=== PATIENT | male | born 1950 | race Caucasian/White ===

== ENCOUNTER 2024-08-06 09:36 | Emergency (ER) | payer MEDICARE ==
[~2024-08-06] VITALS: Ht 188 cm; Wt 84.1 kg
--- NOTE | 2024-08-06 10:27 | Physician Documentation ---
History of Present Illness ~ Chief Complaint: Back Pain Stated Complaint: BACK/ABD PAIN/INJURY [id number] AGO Time Seen by MD: 09:48 OK to notify your PCP?: Yes Source: patient Mode of Arrival: POV Exam Limitations: no limitations HPI This is a 73-year-old male who comes in complaining of pain in his lower back. The patient states that this pain began about three weeks ago when he was loading up a mxlu-as-asox into a trailer and twisting his back while "wrenching a comealong". He says the pain stays mostly in the mid back but does radiate out words. He denies pain that radiates down the legs. He denies saddle paresthesias with a lots of bowel control. He states he has been having increa sing urinary frequency but believes he has a urinary tract infection as his urine has been very cloudy and the odor and has been strong and he states he is prone to urinary tract infections. Medication Reconciliation Allergies: Coded Allergies: levofloxacin (Unverified Allergy, Severe, 08/06/24) Physical Exam Physical Exam Vital Signs: Temperature: 97.6, Source: Temporal, Heart Rate: 117, Respiratory Rate: 18, BP: 137/91, Pulse Oximetry: 98, Weight: 84.090 Oxygen Flow Rate: 0 Pulse Oximetry Reflects: adequate oxygenation General Appearance: alert, WD/WN, no apparent distress Back To inspection of the back no obvious trauma or gross deformity. There is midline point tenderness at the area just below the thoracolumbar junction. There was mild tenderness to palpation bilateral paraspinal muscles at this level with a spasm. The patient has decreased range of motion of the trunk with flexion-extension rotation secondary to subjective pain. He is able to get up a nd down off the exam gurney with subjective complaints of pain. Sensory/Motor: 5/5 strength all extrem. Sensory/Motor/Reflexes No straight leg raise bilaterally. Deep tendon reflexes bilateral patellar tendons are deep +and equal. Progress Results/Orders Results/Orders Orders - MELLISA RIZVI Lumbar Spine Limited (08/06/24 10:37) Cult Urine + [place] [address] (08/06/24 10:49) Completed Orders - MELLISA RIZVI Lumbar Spine Limited (08/06/24 10:37) Ketorolac Trometh 15mg/Ml Vial (Toradol (08/06/24 10:20) Hydrocodone/Apap 5/325mg Tab ([place] 5/32 (08/06/24 10:20) Ua W/Microscopic, Cult If Ind (08/06/24 10:20) Ceftriaxone Im Kit W/Lidocaine (Rocephin (08/06/24 10:55) Medications Received in ER Medications (Trade) Dose Ordered Sig/Bayron Route PRN Reason Start Time Stop Time Status Last Admin Dose Admin (Toradol injection) 15 mg ONCE ONCE IM 08/06/24 10:20 08/06/24 10:21 DC 08/06/24 10:41 15 MG ([place] 5/325mg tablet) 1 tab ONCE ONCE PO 08/06/24 10:20 08/06/24 10:21 DC 08/06/24 10:39 1 TAB (Rocephin 1GM IM kit (w/lidocaine diluent)) 1,000 mg ONCE ONCE IM 08/06/24 10:55 08/06/24 10:56 DC 08/06/24 11:05 1,000 MG Vital Signs 08/06/24 08/06/24 08/06/24 09:42 10:39 10:41 Temp 97.6 Pulse 117 Resp 18 18 18 B/P (MAP) 137/91 Pulse Ox 98 O2 Flow Rate 0 Laboratory Tests Test 08/06/24 10:20 Urine Specimen Description Cln catch midstream Urine Color Green Urine Clarity Cloudy Urine pH 7.5 Urine Specific [place] 1.020 Urine Protein 100 H Urine Glucose (UA) Negative Urine Ketones Negative Urine Occult Blood Trace-intact Urine Nitrite Negative Urine Bilirubin Negative Urine Urobilinogen 0.2 Urine Leukocyte Esterase Large H Urine RBC 3-10 Urine WBC Tntc H Urine WBC Clumps Few Urine Squamous Epithelial Cells Few Urine Transitional Epithelial Cells Few Urine Triple Phosphate Crystals 1+ Urine Bacteria 4+ Urine Mucus None seen Urine Culture Indicated Indicated Volume Urine Centrifuged 10 ml Urine Comment Medical Decision Making Findings Patient's urinalysis shows too numerous to count WBCs and leukocyte esterase. Findings very consistent with a urinary tract infection. I addressed this with Rocephin 1 g intramuscular I had a prescription for Keflex 500 mg 3 times a day for 10 days. Regarding the patient's back pain he received Toradol 15 mg IM and [place] p.o. for his pain. X-rays showed moderate lower lumbar degenerative changes with disc space narrowing, spinal canal stenosis. The patient does not have signs of cauda equina syndrome or focal neuro deficits. The urinary tract infection appears to be independent of his back pain. I did instruct the patient to follow up with the primary care physician to recheck his back pain in the urinary tract infection. Return to the ER for any worsening or concerning symptoms such as fever. Differential Diagnosis Disc herniation of the lumbar spine. Lumbosacral radiculopathy. Degenerative spine disease. Facet arthropathy. Urinary tract infection. Dysuria. Departure Disposition: HOME / SELF CARE / HOMELESS Impression: Primary Impression: Degenerative joint disease (DJD) of lumbar spine Additional Impression: Urinary tract infection Condition: Stable Discharge Instructions: Acute Back Pain, Adult, Urinary Tract Infection, Adult Additional Instructions: Take all medications as directed for your back pain and your urinary tract infection. Drink plenty of water. Follow up with your primary care physician for follow up on both your back pain in your outer infection. Return to the ER for any worsening symptoms such as fever or any concerns. Referrals: NO PRIMARY CARE PROVIDER (PCP) Prescriptions Methocarbamol (Methocarbamol) 750 Mg Tablet 1 TAB PO Q8H for muscle pain/spasm, #20 TAB 0 Refills Prov: MELLISA RIZVI 08/06/24 Hydrocodone Bit/Acetaminophen 5/325 MG ([place] 5/325 MG) 5 Mg/325 Mg Tablet 1 TAB PO Q4H PRN for moderate or severe pain, #20 TAB Prov: MELLISA RIZVI 08/06/24 Cephalexin*Monohydrate* (Keflex*) 500 Mg Capsule 1 CAP PO Q8H for 10 Days, #30 CAP Prov: MELLISA RIZVI 08/06/24 Signature Scribe Signature: No scribe Attestation: The note accurately reflects work and decisions made by me.Mellisa RAMOS 08/06/24 11:31 MELLISA RIZVI August 06, 2024 10:27
[2024-08-06 10:39] LABS: BILIRUBIN,URINE NEGATIVE (Neg); GLUCOSE, URINE NEGATIVE (Neg); KETONES,URINE NEGATIVE (Neg); LEUKOCYTE ESTERASE ,URINE LARGE (Neg); NITRITES, URINE NEGATIVE (Neg); OCCULT BLOOD,URINE TRACE-INTACT (Neg); PH,URINE 7.5 (4.8-8.0); PROTEIN,URINE 100 mg/dl (Neg); UROBILINOGEN,URINE 0.2 E.U/dL (0.2-1.0)
[2024-08-06] MEDS: HYDROcodone/acetaminophen 5mg/325mg tablet PO ONE (10:39)
[2024-08-06 10:40] LABS: CLARITY,URINE CLOUDY (Clear); COLOR,URINE GREEN (Yellow); UA COLLECTION TYPE CLN CATCH MIDSTREAM
[2024-08-06] MEDS: ketorolac trometh 15mg/ml vial 15 MG/ML ML IM ONE (10:41)
[2024-08-06 10:45] LABS: WBC,URINE TNTC /HPF (0-4)
[2024-08-06 10:46] LABS: BACTERIA,URINE 4+ /HPF (Neg); SQUAMOUS EPITHELIAL CELL,UR FEW /LPF (FEW)
[2024-08-06 10:48] LABS: MUCUS STRANDS NONE SEEN /LPF (Neg); TRANSITIONAL EPI CELLS,URINE FEW /HPF; TRIPLE PHOSPHATE CRYST 1+ /HPF (NEGATIVE); WBC CLUMPS,URINE FEW /HPF (NEGATIVE)
--- NOTE | 2024-08-06 11:00 | RADIOLOGY REPORT ---
INDICATION: Back pain COMPARISON: None TECHNIQUE: 3 views of the lumbar spine were obtained. FINDINGS: The lumbar vertebral alignment is normal. Multilevel degenerative changes most severe at L4-L5 through L5-S1 with moderate neural foraminal and spinal canal stenosis No acute fracture, vertebral compression deformity or aggressive osseous lesions. The paravertebral soft tissues are grossly unremarkable. IMPRESSION: No acute fracture or subluxation.
[2024-08-06] MEDS: CefTRIAXone 1000mg IM Kit (w/lidocaine diluent) IM ONE (11:05)
[2024-08-06] MEDS ORDERED: METH-798 PO (11:30)
[2024-08-06] MEDS ORDERED: HYDR-3965 PO (11:30)
[2024-08-06] MEDS ORDERED: CEPH-585 PO (11:30)
[2024-08-06 11:35] VITALS: BP 132/78; PULSE 87; RESP 16; TEMP 97.6; O2SAT 99
== END 2024-08-06 11:35 | disposition home or self-care (01) ==
LOC: ER 09:37
DX: M51.360 Other intervertebral disc degeneration, lumbar region with discogenic back pain only (principal); N39.0 Urinary tract infection, site not specified; Z88.1 Allergy status to other antibiotic agents
CPT/HCPCS: 72100; 81001; 87088; 96372; 99284; J0696; J1885

== ENCOUNTER 2024-08-13 13:58 | Inpatient (IN) | payer MEDICARE ==
[~2024-08-13] VITALS: Ht 188 cm; Wt 91.8 kg
[~2024-08-13 13:58] MED LIST: CEPH-585 PO; HYDR-3965 PO; METH-798 PO
--- NOTE | 2024-08-13 14:57 | Physician Documentation ---
History of Present Illness ~ Chief Complaint: Flank Pain Stated Complaint: SEPSIS Time Seen by MD: 14:27 Primary Medical Doctor: [facility] Mode of Arrival: EMS HPI This 73-year-old male presents via [facility] for left flank pain, pyelonephritis, acute kidney injury, severe sepsis urinary retention and a peritoneal abscess. Menstrual also made note of hydronephrosis of the right kidney, and peritoneal fluid collection In addition it was found that patient has a T10 compression fracture He also has a history of requiring dilation for his urethral strictures. He has been on Keflex for three weeks. Currently reporting foul-smelling urine. Day of Onset: August 13, 2024 Medication Reconciliation Allergies: Coded Allergies: levofloxacin (Unverified Allergy, Severe, 08/06/24) Scheduled Cephalexin*Monohydrate* (Keflex*), 1 CAP PO Q8H Methocarbamol (Methocarbamol), 1 TAB PO Q8H Scheduled PRN Hydrocodone Bit/Acetaminophen 5/325 MG ([place] 5/325 MG), 1 TAB PO Q4H PRN for moderate or severe pain Review of Systems All Other Systems at this time: Reviewed and Negative ROS As stated above in the HPI, otherwise all systems are reviewed and negative. Physical Exam Vital Signs: Temperature: 98.1, Source: Oral, Heart Rate: 115, Respiratory Rate: 19, BP: 135/92, Pulse Oximetry: 96, Weight: 91.820 Oxygen Flow Rate: 0 Physical Exam General: Alert, no apparent distress. Toxic appearing HEENT: PERRL, EOMI, no injection, moist mucous membranes. Genitourinary: Positive CVA tenderness on the right side. Tender to palpation in the pelvic region ,distended Respiratory: Lungs clear, no respiratory distress. Cardiovascular: Regular rate and rhythm, no murmurs. Gastrointestinal: Soft, nontender, nondistended. Bowels sounds present. Neurologic: Oriented x4. Psychiatric: Normal mood and affect. Skin: Normal color, warm and dry. No edema, no ecchymosis. Progress Results/Orders Results/Orders Orders - WILLIAM GOMEZ RESTRIKE HAMMER OPERATOR * Bladder Scan / Post Residual (08/13/24 14:39) General Nursing Order (08/13/24 ) Page Hospitalist (08/13/24 ) [place] (08/13/24 16:58) Completed Orders - WILLIAM GOMEZ RESTRIKE HAMMER OPERATOR Cbc/Diff (08/13/24 14:36) BMP (08/13/24 14:36) Lipase (08/13/24 14:36) CMP (08/13/24 14:36) Morphine 4mg/Ml Inj. (Morphine Inj.) (08/13/24 15:05) Lidocaine 1% W/Epi 1:100,000 (Xylocaine (08/13/24 15:45) Ua W/Microscopic, Cult If Ind (08/13/24 16:24) Ceftriaxone 2gm/D5w 50ml Bag (Rocephin 2 (08/13/24 17:00) Medications Received in ER Medications (Trade) Dose Ordered Sig/Bayron Route PRN Reason Start Time Stop Time Status Last Admin Dose Admin (morphine inj.) 4 mg ONCE ONCE IV 08/13/24 15:05 08/13/24 15:06 DC 08/13/24 15:11 4 MG (morphine inj.) 4 mg ONCE ONCE IV 08/13/24 16:20 08/13/24 16:22 DC 08/13/24 16:32 4 MG Ceftriaxone Sodium/Dextrose 50 ml @ 100 mls/hr DAILY IV 08/13/24 17:00 08/13/24 17:29 DC 08/13/24 17:16 100 MLS/HR Sodium Chloride 1,000 ml @ 100 mls/hr Q10H IV 08/13/24 17:00 08/13/24 17:15 100 MLS/HR Vital Signs 08/13/24 08/13/24 08/13/24 08/13/24 14:00 14:04 14:11 15:11 Temp 98.6 98.1 Pulse 105 115 Resp 22 18 19 18 B/P (MAP) 157/93 135/92 (106) Pulse Ox 95 96 O2 Flow Rate 0 0 08/13/24 08/13/24 16:32 16:34 Temp 98.1 Pulse 112 Resp 15 16 B/P (MAP) 126/88 (101) Pulse Ox 97 O2 Flow Rate 0 Laboratory Tests Test 08/13/24 14:48 08/13/24 16:24 White Blood Count 12.4 H Red Blood Count 3.70 L Hemoglobin 11.0 L Hematocrit 33.8 L Mean Corpuscular Volume 91.3 Mean Corpuscular Hemoglobin 29.7 Mean Corpuscular Hemoglobin Concent 32.5 L Red Cell Distribution Width 15.0 H Platelet Count 437 Mean Platelet Volume 8.2 Neutrophils (%) (Auto) 71.0 Lymphocytes (%) (Auto) 19.4 L Monocytes (%) (Auto) 8.7 Eosinophils (%) (Auto) 0.6 Basophils (%) (Auto) 0.3 Neutrophils # (Auto) 8.8 H Lymphocytes # (Auto) 2.4 Monocytes # (Auto) 1.1 H Eosinophils # (Auto) 0.1 Basophils # (Auto) 0.0 CBC Comment Sodium Level 137 Potassium Level 4.3 Chloride Level 105 Carbon Dioxide Level 22.8 L Anion Gap 9 Blood Urea Nitrogen 49 H Creatinine 1.96 H Estimated GFR/1.73 m2 34 BUN/Creatinine Ratio 25.0 H Glucose Level 101 Calcium Level 9.0 Total Bilirubin 0.2 Aspartate Amino Transf (AST/SGOT) 18 Alanine Aminotransferase (ALT/SGPT) 25 Alkaline Phosphatase 167 H Total Protein 7.5 Albumin 2.0 L Globulin 5.5 H Albumin/Globulin Ratio 0.4 L Lipase 45 Chemistry Comments Urine Specimen Description Theodore cath Urine Color Yellow Urine Clarity Cloudy Urine pH 5.5 Urine Specific [place] 1.015 Urine Protein 30 H Urine Glucose (UA) Negative Urine Ketones Negative Urine Occult Blood Large H Urine Nitrite Negative Urine Bilirubin Negative Urine Urobilinogen 0.2 Urine Leukocyte Esterase Trace H Urine RBC Tntc Urine WBC 5-10 H Urine Squamous Epithelial Cells Few Urine Bacteria 1+ Urine Culture Indicated Indicated Volume Urine Centrifuged 10 ml Urine Comment Medical Decision Making Findings Contacted Dr. Austin or emergent operation on urethral stricture t or suprapubic catheter tod decompress the bladder. Was evaluated by Dr. Austin Difficulty placing the the guidewire initially however eventually he was able to insert the appropriate dilators and eventually obtain a of Theodore catheterization with the positive results. Patient's bladder has been decompressed requesting hospital admission antibiotics and further evaluation Urinary Diff Dx:Considerations: Include: AAA, Aortic dissection, Appendicitis, Appendicitis train, Bowel obstruction, Bladder outlet obstruc., Cholelithiasis, Choleangitis, Cholecystitis, DJD, Epididymitis, Hepatitis, HNP, Impaction, Musculoskeletal pain, Pancreatitis, Postoperative Comp., Prostatitis, Pyelonephritis, Renal failure, Renal infarction, Strain, Urolithiasis, Urinary Obstruction, Urethritis, Urinary retention, UTI, Other Departure Disposition: HOME / SELF CARE / HOMELESS Impression: Primary Impression: Acute pyelonephritis Additional Impression: Urinary retention Referrals: NO PRIMARY CARE PROVIDER (PCP) Signature Scribe Signature: dThe note accurately reflects work and decisions made by me.William Jacobs NP 08/13/24 18:03 Attestation: The note accurately reflects work and decisions made by me.William Jacobs NP 08/13/24 18:03 WILLIAM GOMEZ NP August 13, 2024 14:57
[2024-08-13] MEDS: morphine 4 MG/ML inj SYRINge IV ONE ×2 (15:11→16:32)
[2024-08-13 15:26] LABS: BASOPHILS % (AUTO) 0.3 % (0-1); EOSINOPHILS # (AUTO) 0.1 X10'3 (0-0.9); EOSINOPHILS % (AUTO) 0.6 % (0-6); HEMATOCRIT 33.8 % (42.0-52.0); LYMPHOCYTES # (AUTO) 2.4 X10'3 (1.1-4.8); LYMPHOCYTES % (AUTO) 19.4 % (21-51); MEAN CORPUSCULAR HEMOGLOBIN 29.7 PG (27.0-31.0); MEAN CORPUSCULAR HGB CONC 32.5 g/dL (33.0-36.5); MEAN CORPUSCULAR VOLUME 91.3 FL (78-98); MEAN PLATELET VOLUME 8.2 FL (7.4-10.4); MONOCYTES # (AUTO) 1.1 X10'3 (0-0.9); MONOCYTES % (AUTO) 8.7 % (2-12); NEUTROPHILS # (AUTO) 8.8 X10'3 (1.8-7.7); PLATELET COUNT 437 X10'3 (140-440); WHITE BLOOD COUNT 12.4 X10'3 (4.5-11.0)
[2024-08-13 15:45] LABS: ALANINE AMINOTRANSFERASE 25 U/L (12-78); ALBUMIN/GLOBULIN RATIO 0.4 (1.1-1.5); ALKALINE PHOSPHATASE 167 IU/L (46-116); ANION GAP 9 (8-16); ASPARTATE AMINO TRANSFERASE 18 U/L (10-37); BILIRUBIN,TOTAL 0.2 MG/DL (0.1-1.0); BLOOD UREA NITROGEN 49 MG/DL (7-18); CHLORIDE 105 MMOL/L (99-107); CREATININE 1.96 MG/DL (0.60-1.10); GLUCOSE 101 MG/DL (70-104); LIPASE 45 U/L (16-77); POTASSIUM 4.3 MMOL/L (3.5-5.1); SODIUM 137 MMOL/L (135-145); TOTAL CARBON DIOXIDE 22.8 MMOL/L (24-32); TOTAL PROTEIN 7.5 G/DL (6.4-8.2); eCRCL 38 ML/MIN; eGFR 34 ML/MIN
[2024-08-13] MEDS: LIDOcaine 1% W/epiNEPHrine 1:100,000 20ml vial SQ ONE (16:27)
[2024-08-13 16:54] LABS: BILIRUBIN,URINE NEGATIVE (Neg); CLARITY,URINE CLOUDY (Clear); COLOR,URINE YELLOW (Yellow); GLUCOSE, URINE NEGATIVE (Neg); KETONES,URINE NEGATIVE (Neg); LEUKOCYTE ESTERASE ,URINE TRACE (Neg); NITRITES, URINE NEGATIVE (Neg); OCCULT BLOOD,URINE LARGE (Neg); PH,URINE 5.5 (4.8-8.0); PROTEIN,URINE 30 mg/dl (Neg); UROBILINOGEN,URINE 0.2 E.U/dL (0.2-1.0)
[2024-08-13 16:56] LABS: UA COLLECTION TYPE FOLEY CATH
[2024-08-13] MEDS ORDERED: potassium Cl 20 mEq SR tablet PO PRN ×2 (17:00)
[2024-08-13] MEDS ORDERED: acetaminophen 325mg tablet PO PRN ×2 (17:00)
[2024-08-13] MEDS ORDERED: morphine 2 MG/ML inj. syringe IV PRN (17:00)
[2024-08-13] MEDS ORDERED: potassium Cl 40MEQ/1/2NS 520ml 520 ML IV PRN (17:00)
[2024-08-13] MEDS ORDERED: magnesium Cl slow-release 64mg tablet PO PRN (17:00)
[2024-08-13] MEDS ORDERED: HYDROcodone/acetaminophen 5mg/325mg tablet PO PRN (17:00)
[2024-08-13] MEDS ORDERED: magnesium sulf-water 4G/100mL 100 ML IV PRN (17:00)
[2024-08-13] MEDS ORDERED: magnesium sulf-water 2g/50mL 50 ML IV PRN (17:00)
[2024-08-13] MEDS ORDERED: ondansetron/PF 4mg/2ml inj IV PRN (17:00)
[2024-08-13 17:12] LABS: BACTERIA,URINE 1+ /HPF (Neg); RBC,URINE TNTC /HPF (0-2); SQUAMOUS EPITHELIAL CELL,UR FEW /LPF (FEW)
[2024-08-13] MEDS: normal saline 1000ml 1,000 ML IV SCH (17:15)
[2024-08-13] MEDS: CefTRIAXone 2gm/D5W 50ml BAG 50 ML IV SCH (17:16)
--- NOTE | 2024-08-13 18:03 | HISTORY AND PHYSICAL-Residence ---
History & Physical Providers to CC Resident Creating Document: IKE JULES DESTINY ~ History of Present Illness Primary Medical Doctor: [facility] Reason for Admit\Complaint: PAIN ABDOMEN, RIGHT LOIN PAIN History of Present Illness 73-year-old male with past medical history of hypertension, hyperlipidemia transferred from [facility], [place] with chief complaints of right flank pain with UTI, sepsis, bilateral hydroureteronephrosis. Perineal abscess, T10-T11 with a little compression fracture, pin hole urethra/ureteral strictures requiring dilatation, bladder abnormalities. Endorses backache on the right side for the past 2-1/2 half week and he could not able to check with the daughter and went to [place]. Endorses pain and burning sensation while passing the micturition for two and of week. Complaining of decreased urine output and hematuria. He also endorses low blood pressure of 90 x 60 at home for the past two and half week. Endorses lightheadedness and shakes for the past one week. Complaining of dryness of lips and oral cavity. He has been on Keflex for the past three weeks for urinary tract infection and reporting foul-smelling urine. He reported no abdominal pain, abdominal distention, fever, dizziness. Patient was here in the ER for the lower back pain on 08/06/2024 and treated lumbosacral radiculopathy. Discussed code status with the patient the patient wants to be full code Allergies: Coded Allergies: levofloxacin (Unverified Allergy, Severe, 08/06/24) Home Medications Home Medications Active Methocarbamol 750 Mg Tablet 1 Tab PO Q8H Barnhart 5/325 MG (Acetaminophen/Hydrocodone Bitart) 5 Mg/325 Mg Tablet 1 Tab PO Q4H PRN Keflex* (Cephalexin HCl) 500 Mg Capsule 1 Cap PO Q8H 10 Days Past Medical History Past Medical History Hypertension Hyperlipidemia UTI three weeks back Pinhole urethra Past Surgical History Surgical History Comment TURP in the 2009 Partial knee replacement 2006 Past Social History Smoking: Non-Smoker Alcohol Use: Alcoholic Drug Use: None ROS All Other Systems: Reviewed and Negative ROS Reviewed in full and negative except positive pertinent in HPI Exam Vitals: Vital Signs Date Time Temp Pulse Resp B/P (MAP) Pulse Ox O2 Delivery O2 Flow Rate FiO2 08/13/24 17:31 98.1 107 15 126/88 (101) 95 0 General: General: Alert, awake, oriented to time, place , person . Not in acute distress comfortably lying in the bed HEENT: PERRL, EOMI, no injection, Dry mucous membranes. Gastrointestinal :Soft, nontender, nondistended. Bowels sounds present. Positive CVA tenderness on the right side. Tender to palpation in the pelvic region ,distended Respiratory: Lungs clear, no respiratory distress. No crepitations and wheeze Cardiovascular: Regular rate and rhythm, no murmurs/gallops/rubs. Neurologic: Oriented x4. Psychiatric: Normal mood and affect. Skin: Normal color, warm and dry. No edema, no ecchymosis. Extremities: No clubbing no cyanosis, no edema Diagnostic Data Last Recorded Lab Results: 08/13/24 1448 08/13/24 1448 Advance Care Planning Advanced Care planning: Add on additional 30 min Additional Plan UTI Sepsis Cystitis with bilateral severe hydroureteronephrosis with ureteral stricture Tachycardia is noted. White blood counts , serum creatinine are elevated. Urinalysis positive for UTI Blood culture and urine culture, procalcitonin, CRP, lactic acid is is ordered Received ceftriaxone dose and morphine We are continuing ceftriaxone 2 g IV On IV normal saline 100 mL/hour Patient may benefit from Urologist consultation and surgeons consultation. We will be in NPO CT and abdomen and pelvis with IV contrast at [facility] is showing bilateral hydronephrosis. Atrophic left kidney. Severe hydroureter. Severely distended bladder with diffusely thickened wall. No visible urinary tract calcifications. Large fluid collection involving the perineum at the base of the penis. No associated soft tissue gas or inflammatory change. Perineal abscess could cause appearance. Compression fracture versus diskitis involving the T10-11 vertebral bodies in the right done on 08/13/2024. Pain is treated with Barnhart 10 q.6 H p.r.n. and morphine GARRET Likely secondary to prerenal, vasomotor nephropathy, UTI with sepsis with dehydration Creatinine is 1.96 and BUN to creatinine ratio is 25 On IV normal saline at the rate of 100 mL/hour and ceftriaxone Continue to monitor serum CMP Perineal abscess Compression fracture involving T10 and T11 vertebral bodies in the right side Patient needs the orthopedic consultation and IR/ surgeon consultation Currently on ceftriaxone, IV normal saline at the rate of 100 mL/hour. Hypertension Blood pressure is okay On hydralazine q.6 H 10 mg IV Hyperlipidemia Ordered lipid panel and we will follow up with the results Severe Protein malnutrition Serum albumin two Patient is currently in NPO Elevated ALP ALP is 167 Could be acute phase reactant. We will follow up with the LFTs Code status: Full Diet: NPO after midnight DVT prophylaxis: Heparin subQ PT: Ordered Prognosis: Guarded Disposition: Patient needs ID consultation, Urology, surgeon consultation Ike Jules Im Resident. Date of Service: August 13, 2024 Billing Provider: JUNO HILL MD Common Visit Codes: 95234-AVVYPIN INP/OBS CARE (HIGH) Secondary Visit Codes: 12656-[id number] CARE PLAN 30 MINUTES IKE JULES, RES August 13, 2024 18:03 JUNO HILL MD August 13, 2024 19:02
[2024-08-13] MEDS ORDERED: hydrALAZINE 20mg/ml inj. IV PRN (18:20)
[2024-08-13 19:23] LABS: HEMOGLOBIN A1C 6.2 % (4.5-6.2)
[2024-08-13 19:58] LABS: C-REACTIVE PROTEIN 13.77 MG/DL (0.0-0.5); CHOL/HDL RATIO 2.9 (0.00-4.99); CHOLESTEROL 135 MG/DL (0-200); HDL CHOLESTEROL 46 MG/DL (35-60); LDL CHOLESTEROL 69 MG/DL (50-100); TRIGLYCERIDES 90 MG/DL (20-135)
[2024-08-13] MEDS: heparin, porcine 5000 units/ml vial SQ SCH (20:37)
[2024-08-13] MEDS ORDERED: CELE-193 PO (23:03)
[2024-08-13] MEDS ORDERED: HYDR-3965 PO (23:03)
[2024-08-13] MEDS ORDERED: RIVA10TA PO (23:03)
[2024-08-13] MEDS ORDERED: LISI20TA28 PO (23:03)
[2024-08-13 23:05] VITALS: BP 132/86; PULSE 103; RESP 19; TEMP 97.9; O2SAT 95
--- NOTE | 2024-08-14 01:34 | CONSULTATION ---
DATE OF CONSULTATION: 08/13/2024 DICTATING PHYSICIAN: Parish Austin MD HISTORY OF PRESENT ILLNESS: A 73-year-old male who was admitted and transferred from [facility] in [place] to [facility] with left flank pain and apparent pyelonephritis with elevated creatinine and sepsis from possible bladder distention. He was found to have a profound meatal stenosis and passing purulent color ____ with a tiny stream. Nursing staff was unable to catheterize him and he was transferred for my care. On further questioning, he has a remote history of urethral stricture dilated more than 15 years ago. Bladder scan suggests a residual of more than 1200 mL. PAST MEDICAL HISTORY: Urethral strictures and UTI. PAST SURGICAL HISTORY: None. ALLERGIES: LEVAQUIN. MEDICATIONS: Keflex and methocarbamol. SOCIAL HISTORY: Noncontributory. REVIEW OF SYSTEMS: A 10-point review of systems is negative except for HPI. PHYSICAL EXAMINATION: VITAL SIGNS: Blood pressure is 135/92, respirations 20, heart rate 115, temperature 98.1. GENERAL: He is in minimal distress. GENITOURINARY: Shows a circumcised penis with a pinpoint meatus, but it is difficult to see the meatal orifice even. The patient has a palpable bladder up the umbilicus. LABORATORY DATA: White count 12,400, hematocrit is 34%. BUN and creatinine are 49 and 1.96. Urine shows too numerous to count red cells per high-powered field. IMAGING: Radiographs are pending. PROCEDURE NOTE: Standard prep and drape of the genitals was performed. With difficulty, a wire was advanced into a tiny orifice of the meatus and advanced and coiled into the kidney. This was followed by urethral dilation from 6-Serbian up to 18-Serbian, which the patient tolerated moderately well. The guidewire was left indwelling and used to advance a 14-Serbian Theodore catheter with 10 mL in the balloon and drainage of 1000 mL of cloudy-colored urine. ASSESSMENT: Urinary retention secondary to severe meatal stenosis. Also suspect the patient has more stricture disease proximally as well based on dilation today. PLAN: Theodore catheter for now. Discharge home with Theodore catheter in place. He will follow up with me in 1-2 weeks for voiding trial. Parish Austin MD TID: [id number] RECEIPT: [id number] [place]ARYN/[place]
[2024-08-14 04:36] LABS: BASOPHILS # (AUTO) 0.1 X10'3 (0-0.2); BASOPHILS % (AUTO) 0.7 % (0-1); EOSINOPHILS # (AUTO) 0.2 X10'3 (0-0.9); EOSINOPHILS % (AUTO) 1.3 % (0-6); HEMATOCRIT 31.8 % (42.0-52.0); HEMOGLOBIN 10.2 g/dl (14.0-17.9); LYMPHOCYTES # (AUTO) 2.1 X10'3 (1.1-4.8); LYMPHOCYTES % (AUTO) 17.8 % (21-51); MEAN CORPUSCULAR HEMOGLOBIN 29.9 PG (27.0-31.0); MEAN CORPUSCULAR HGB CONC 32.2 g/dL (33.0-36.5); MEAN CORPUSCULAR VOLUME 92.7 FL (78-98); MEAN PLATELET VOLUME 8.2 FL (7.4-10.4); MONOCYTES # (AUTO) 0.9 X10'3 (0-0.9); MONOCYTES % (AUTO) 7.8 % (2-12); NEUTROPHILS # (AUTO) 8.6 X10'3 (1.8-7.7); NEUTROPHILS % (AUTO) 72.4 % (42-75); PLATELET COUNT 397 X10'3 (140-440); RED BLOOD COUNT 3.43 X10'6 (4.70-6.10); RED CELL DISTRIBUTION WIDTH 15.4 % (11.5-14.5); WHITE BLOOD COUNT 11.9 X10'3 (4.5-11.0)
[2024-08-14 05:01] LABS: ALBUMIN 1.7 G/DL (3.4-5.0); ANION GAP 12 (8-16); BLOOD UREA NITROGEN 43 MG/DL (7-18); BUN/CREATININE RATIO 23.8 (10.0-20.0); CHLORIDE 107 MMOL/L (99-107); CREATININE 1.81 MG/DL (0.60-1.10); GLUCOSE 83 MG/DL (70-104); POTASSIUM 4.3 MMOL/L (3.5-5.1); SODIUM 139 MMOL/L (135-145); TOTAL CARBON DIOXIDE 19.9 MMOL/L (24-32); eCRCL 42 ML/MIN; eGFR 37 ML/MIN
[2024-08-14 06:00] VITALS: BP 110/84; PULSE 95; RESP 19; TEMP 97.8; O2SAT 96
[2024-08-14] MEDS: CefTRIAXone 2gm/D5W 50ml BAG 50 ML IV SCH (07:42)
[2024-08-14] MEDS: morphine 2 MG/ML inj. syringe IV PRN (08:07)
[2024-08-14 10:00] VITALS: BP 119/83; PULSE 102; RESP 20; TEMP 98.2; O2SAT 94
--- NOTE | 2024-08-14 14:22 | RADIOLOGY REPORT ---
PROCEDURE: MR MRI LUMBAR SPINE INDICATION: trauma with intabdominal collection 73-year-old male with back pain. Exam Date: 08/14/2024 12:07 PM COMPARISON: Lumbar spine radiographs dated 08/06/2024. TECHNIQUE: MRI lumbar spine without intravenous contrast. FINDINGS: No vertebral body fractures are identified about the lumbar spine. There is bilateral L5 spondylolysi s with grade 1 anterolisthesis L4 on L5 measuring 8 mm AP. The conus terminates at L1. L1-L2: There is a mild circumferential broad disc bulge. There is bilateral facet and ligamentum flav um hypertrophy. No significant spinal canal stenosis or neural foraminal stenosis bilaterally. L2-L3: There is a mild circumferential broad disc bulge. There is bilateral facet and ligamentum flav um hypertrophy. No significant spinal canal stenosis or neural foraminal stenosis bilaterally. L3-L4: There is a mild circumferential broad disc bulge. There is bilateral facet hypertrophy. No sig nificant spinal canal stenosis or neural foraminal stenosis bilaterally. L4-L5: There is 8 mm anterolisthesis L4 on L5 with bilateral L5 spondylolysis. There is disc desiccat ion with loss of disc height. Possible vacuum phenomenon in the disc. There are Modic type 2 changes in the adjacent endplates. There is a circumferential broad disc bulge with endplate hypertrophy. No significant spinal canal stenosis. There is moderate to severe bilateral neural foraminal stenosis. L5-S1: There is disc desiccation with mild loss of disc height. Probable vacuum phenomenon in the di sc. There is a circumferential broad disc bulge. There is mild bilateral facet hypertrophy. No signif icant spinal canal stenosis. There is mild bilateral neural foraminal stenosis. Miscellaneous: There is bilateral renal atrophy, greater on the left, although the kidneys are not fu lly imaged here. IMPRESSION: 1. No vertebral body fracture of the lumbar spine. 2. 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 3. Advanced lumbar degenerative disc disease and facet arthropathy with significant neural foraminal stenosis bilaterally at L4-L5. These findings May correspond to lower extremity radicular symptoms i n the L4 nerve root distributions. 4. No high-grade spinal canal stenosis at any level in the lumbar spine. 5. Bilateral renal atrophy, not fully imaged here.
[2024-08-14 14:47] VITALS: RESP 18; O2SAT 94
--- NOTE | 2024-08-14 16:21 | PROGRESS NOTE- Residence ---
Progress Note - Resident Providers to CC Resident Creating Document: NANABEL JULES RES ~ Antibiotic Timeout Antibiotic Ordered?: Yes Subjective Patient is seen and examined on bedside. Endorses complaining of the right loin pain, near the costovertebral angle. He is not feeling well for the past two and half to three weeks and history of the fall to end of week back and micturition difficulties for the past two and half week. He is living with his . He is also complaining of the lower backache. Objective Vital Signs Date Time Temp Pulse Resp B/P (MAP) Pulse Ox O2 Delivery O2 Flow Rate FiO2 08/14/24 14:52 18 08/14/24 14:47 94 Room Air 08/14/24 10:00 98.2 102 119/83 (95) 08/14/24 00:05 0 21 Result Diagram: 08/14/24 0300 08/14/24 0414 General: Alert, awake, oriented to time, place , person . Not in acute distress comfortably lying in the bed HEENT: PERRL, EOMI, no injection, Dry mucous membranes. Gastrointestinal :Soft, nontender, nondistended. Bowels sounds present. Positive CVA tenderness on the right side. Tender to palpation in the pelvic region Respiratory: Lungs clear, no respiratory distress. No crepitations and wheeze Cardiovascular: Regular rate and rhythm, no murmurs/gallops/rubs. Neurologic: Oriented x4. Psychiatric: Normal mood and affect. Skin: Normal color, warm and dry. No edema, no ecchymosis. Extremities: No clubbing no cyanosis, no edema. No point tenderness in the LS spine Advance Care Planning Advanced Care plannin - 30 Minutes Assessment Assessment 73-year-old male admitted with acute urinary retention, urethral stricture, bilateral severe hydroureteronephrosis, UTI, cystitis, sepsis, GARRET. Consulted urologist and surgeon and we will appreciate their recommendations. Plan Plan UTI Sepsis Cystitis with bilateral severe hydroureteronephrosis with urethral stricture Urinary retention 2/2 severe urethral meatal stenosis Tachycardia is noted. White blood counts , serum creatinine are elevated. Urinalysis positive for UTI Blood culture and urine culture, procalcitonin, CRP, lactic acid is is ordered Received ceftriaxone dose and morphine We are continuing ceftriaxone 2 g IV On IV normal saline 100 mL/hour Patient may benefit from Urologist consultation and surgeons consultation. We will be in NPO CT and abdomen and pelvis with IV contrast at [facility] is showing bilateral hydronephrosis. Atrophic left kidney. Severe hydroureter. Severely distended bladder with diffusely thickened wall. No visible urinary tract calcifications. Large fluid collection involving the perineum at the base of the penis. No associated soft tissue gas or inflammatory change. Perineal abscess could cause appearance. Compression fracture versus diskitis involving the T10-11 vertebral bodies in the right done on 08/13/2024. Pain is treated with [place] 10 q.6 H p.r.n. and morphine 08/14/2024: - patient is symptomatically better and vitals are stable, labs WBC, serum creatinine is improved with high dose of IV normal saline and and ceftriaxone. consulted urologist and surgeon in view of urethral stricture and bilateral hydroureteronephrosis and possible perineal abscess. Patient received Theodore's catheterization , procedure done by by Dr. Austin and recommended uses a the patient with Theodore in place and follow up with with him in 1-2 weeks for voiding trial. We will appreciate the recommendations from Dr. Abraham regarding intra-abdominal collection perineum and perianal fluid collection. We will continue ceftriaxone and IV fluids. GARRET Likely secondary to prerenal, vasomotor nephropathy, UTI with sepsis with dehydration Creatinine is 1.96 and BUN to creatinine ratio is 25 On IV normal saline at the rate of 100 mL/hour and ceftriaxone Continue to monitor serum CMP 08/14/2024 - serum creatinine is trended down to 1.81 from 1.96. Patient is on Theodore's catheterization for urethral meatus and acute urinary retention. Perineal abscess Compression fracture involving T10 and T11 vertebral bodies in the right side Patient may need the surgeon & neurosurgery consultation Currently on ceftriaxone, IV normal saline at the rate of 100 mL/hour. Hypertension Blood pressure is in 120s On hydralazine q.6 H 10 mg IV Hyperlipidemia LDL is 69 Severe Protein malnutrition Serum albumin two Patient is currently in NPO Elevated ALP ALP is 167 Code status: Full Diet: Regular diet DVT prophylaxis: Heparin subQ PT: Ordered Prognosis: Guarded Annabel Jules Im Resident. Date of Service: August 14, 2024 Billing Provider: JUNO HILL MD Common Visit Codes: [id number] INP/OBS CARE(HIGH) ANNABEL JULES RES August 14, 2024 16:21 JUNO HILL MD August 14, 2024 19:13
[2024-08-14] MEDS: HYDROcodone/acetaminophen 10/325mg tab PO PRN (17:45)
[2024-08-14 18:00] VITALS: BP 150/89; PULSE 101; RESP 20; TEMP 98.1; O2SAT 97
--- NOTE | 2024-08-14 19:47 | PROGRESS NOTE ---
Progress Note ID Providers to CC ~ Progress Note Progress Note: pt seen by urology-call if needed SHAVON WHITTINGTON MD August 14, 2024 19:47
[2024-08-14 20:00] VITALS: RESP 13; O2SAT 97
--- NOTE | 2024-08-14 20:20 | PROGRESS NOTE ---
DATE: 08/14/2024 DICTATING PHYSICIAN: Parish Austin MD SUBJECTIVE: 24-hour events. I was called the emergency room yesterday with the patient having severe meatal stenosis. He underwent dilation of his meatal stenosis and Theodore catheter placement draining over 2 liters of urine. His CT scan, which was performed prior to transfer to this institution at [facility], was reviewed by me and shows bilateral hydronephrosis with a markedly distended bladder and severe left renal atrophy. Creatinine decreases from 1.96 down to 1.81. White count decreases from 12.4 down to 11.9. ASSESSMENT: Obstructive uropathy secondary to severe meatal stenosis, status post dilation and Theodore catheter placement. The patient has permanently damaged left kidney with atrophy. He is also at high risk for areflexic neurogenic bladder from chronic distention. PLAN: Okay to discharge home with Theodore catheter in place when clinically stable. He will follow up in the office to see me in 1-2 weeks. He will likely need to either be taught intermittent self-catheterization or chronic indwelling Theodore. Intermittent self-catheterization will be problematic in someone with severe stricture disease like him, however. Parish Austin MD TID: [id number] RECEIPT: [id number] LA/BRITANY
[2024-08-14 22:00] VITALS: BP 120/76; PULSE 97; RESP 13; TEMP 98.3; O2SAT 95
[2024-08-15 04:14] LABS: BASOPHILS # (AUTO) 0.1 X10'3 (0-0.2); BASOPHILS % (AUTO) 0.5 % (0-1); EOSINOPHILS # (AUTO) 0.2 X10'3 (0-0.9); EOSINOPHILS % (AUTO) 1.9 % (0-6); HEMATOCRIT 28.7 % (42.0-52.0); HEMOGLOBIN 9.5 g/dl (14.0-17.9); LYMPHOCYTES # (AUTO) 2.1 X10'3 (1.1-4.8); MEAN CORPUSCULAR HEMOGLOBIN 30.2 PG (27.0-31.0); MEAN CORPUSCULAR VOLUME 91.4 FL (78-98); MEAN PLATELET VOLUME 7.9 FL (7.4-10.4); MONOCYTES # (AUTO) 0.8 X10'3 (0-0.9); MONOCYTES % (AUTO) 7.7 % (2-12); NEUTROPHILS # (AUTO) 7.3 X10'3 (1.8-7.7); NEUTROPHILS % (AUTO) 69.9 % (42-75); PLATELET COUNT 343 X10'3 (140-440); RED BLOOD COUNT 3.14 X10'6 (4.70-6.10); RED CELL DISTRIBUTION WIDTH 15.4 % (11.5-14.5); WHITE BLOOD COUNT 10.4 X10'3 (4.5-11.0)
[2024-08-15 04:31] LABS: ALBUMIN 1.6 G/DL (3.4-5.0); ANION GAP 12 (8-16); BLOOD UREA NITROGEN 35 MG/DL (7-18); BUN/CREATININE RATIO 20.3 (10.0-20.0); CALCIUM 8.7 MG/DL (8.5-10.1); CHLORIDE 108 MMOL/L (99-107); CREATININE 1.72 MG/DL (0.60-1.10); GLUCOSE 82 MG/DL (70-104); POTASSIUM 3.7 MMOL/L (3.5-5.1); SODIUM 140 MMOL/L (135-145); TOTAL CARBON DIOXIDE 19.7 MMOL/L (24-32); eCRCL 44 ML/MIN; eGFR 39 ML/MIN
[2024-08-15 06:00] VITALS: BP 132/90; PULSE 98; RESP 17; TEMP 98.1; O2SAT 96
[2024-08-15 10:00] VITALS: BP 132/74; PULSE 106; RESP 14; TEMP 97.7; O2SAT 94
[2024-08-15 10:09] VITALS: RESP 18; O2SAT 96
--- NOTE | 2024-08-15 14:21 | RADIOLOGY REPORT ---
RENAL ULTRASOUND History: Renal evaluation Comparison: CT from 08/13/2024 Technique: Multiple real-time sonographic images of the kidney and bladder were obtained in conjuncti on with Doppler imaging. Findings: The bilateral kidneys are echogenic. The right kidney measures 11.4 cm and demonstrates [id number] right hydronephrosis. perinephric fluid collection, or shadowing stone. Right renal cyst measuring 2.1 cm. The left kidney measures 10. cm and demonstrates no evidence of hydronephrosis, perinephric fluid col lection, or shadowing stone. Urinary bladder: Decompressed by Theodore catheter. Possible bladder wall thickening, incompletely otilio acterized Impression: 1.Jmbe-un-iugdyaua right hydronephrosis, appears less pronounced than on the previous CT. 2.Echogenic kidneys which can be seen with medical renal disease. 3.Possible abnormal bladder wall thickening. 4.Asymmetrically smaller left kidney.
[2024-08-15 17:23] VITALS: RESP 18
--- NOTE | 2024-08-15 17:42 | DISCHARGE SUMMARY-Residence ---
Discharge Summary Providers to CC Resident Creating Document: LINDA JULESESH, DESTINY ~ Discharge Summary Admission Diagnosis: Pyelonephritis, acute or urinary retention , ckd3, tachycardia Hospital Course DATE OF ADMISSION: 08/13/2024 DATE OF DISCHARGE:08/15/2024 Ultrasound abdomen RENAL ULTRASOUND History: Renal evaluation Comparison: CT from 08/13/2024 Technique: Multiple real-time sonographic images of the kidney and bladder were obtained in conjunction with Doppler imaging. Findings: The bilateral kidneys are echogenic. The right kidney measures 11.4 cm and demonstrates [id number] right hydronephrosis. perinephric fluid collection, or shadowing stone. Right renal cyst measuring 2.1 cm. The left kidney measures 10. cm and demonstrates no evidence of hydronephrosis, perinephric fluid collection, or shadowing stone. Urinary bladder: Decompressed by Santana catheter. Possible bladder wall thickening, incompletely characterized Impression: 1. Dvlo-fl-[id number] right hydronephrosis, appears less pronounced than on the previous CT. 2. Echogenic kidneys which can be seen with medical renal disease. 3. Possible abnormal bladder wall thickening. 4. Asymmetrically smaller left kidney. MRI LS spine on 08/14/2024 FINDINGS: No vertebral body fractures are identified about the lumbar spine. There is bilateral L5 spondylolysis with grade 1 anterolisthesis L4 on L5 measuring 8 mm AP. The conus terminates at L1. L1-L2: There is a mild circumferential broad disc bulge. There is bilateral facet and ligamentum flavum hypertrophy. No significant spinal canal stenosis or neural foraminal stenosis bilaterally. L2-L3: There is a mild circumferential broad disc bulge. There is bilateral facet and ligamentum flavum hypertrophy. No significant spinal canal stenosis or neural foraminal stenosis bilaterally. L3-L4: There is a mild circumferential broad disc bulge. There is bilateral facet hypertrophy. No significant spinal canal stenosis or neural foraminal stenosis bilaterally. L4-L5: There is 8 mm anterolisthesis L4 on L5 with bilateral L5 spondylolysis. There is disc desiccation with loss of disc height. Possible vacuum phenomenon in the disc. There are Modic type 2 changes in the adjacent endplates. There is a circumferential broad disc bulge with endplate hypertrophy. No significant spinal canal stenosis. There is moderate to severe bilateral neural foraminal stenosis. L5-S1: There is disc desiccation with mild loss of disc height. Probable vacuum phenomenon in the disc. There is a circumferential broad disc bulge. There is mild bilateral facet hypertrophy. No significant spinal canal stenosis. There is mild bilateral neural foraminal stenosis. Miscellaneous: There is bilateral renal atrophy, greater on the left, although the kidneys are not fully imaged here. IMPRESSION: 1. No vertebral body fracture of the lumbar spine. 2. 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 3. Advanced lumbar degenerative disc disease and facet arthropathy with significant neural foraminal stenosis bilaterally at L4-L5. These findings May correspond to lower extremity radicular symptoms in the L4 nerve root distributions. 4. No high-grade spinal canal stenosis at any level in the lumbar spine. 5. Bilateral renal atrophy, not fully imaged here. Discharge Diagnosis\Comment: UTI Cystitis Sepsis Acute urinary retention secondary to urethral stricture Bilateral hydroureteronephrosis GARRET Vasomotor nephropathy prerenal Perineal abscess Compression fracture involving T10-11 Hypertension Hyperlipidemia Severe protein malnutrition Elevated ALP Operations\Procedures: URETHRAL DILATATION AND Santana's catheterization by Dr. Smiley and follow up follow up in 1-2 weeks for voiding trial. Consultants: DR. SHERICE ESCAMILLA Complications: NONE Condition on DC: Stable New Medications: Hydrocodone Bit/Acetaminophen 5/325 MG ([place] 5/325 MG) 5 Mg/325 Mg Tablet 1 TAB PO Q8H PRN for moderate or severe pain 4-10 for 7 Days, #20 TAB Continued Medications: Celecoxib* (Celebrex*) 100 Mg Capsule 200 MG PO DAILY, #30 CAP Cephalexin*Monohydrate* (Keflex*) 500 Mg Capsule 1 CAP PO Q8H for 10 Days, #30 CAP Lisinopril (Lisinopril) 20 Mg Tablet 1.5 TAB PO DAILY for 30 Days, #30 TAB total dose is 30mg daily Rivaroxaban (Xarelto) 10 Mg Tablet 1 TAB PO DAILY for 7 Days, #7 TAB 0 Refills Discontinued Medications: Hydrocodone Bit/Acetaminophen 5/325 MG ([place] 5/325 MG) 5 Mg/325 Mg Tablet 1-2 TAB PO Q4-6 hours PRN for moderate or severe pain, #16 TAB Discharge Summary: HPI at the time of admission: 73-year-old male with past medical history of hypertension, hyperlipidemia transferred from [facility] with chief complaints of right flank pain with UTI, sepsis, bilateral hydroureteronephrosis. Perineal abscess, T10-T11 with a little compression fracture, pin hole urethra/ureteral strictures requiring dilatation, bladder abnormalities. Endorses backache on the right side for the past 2-1/2 half week and he could not able to check with the daughter and went to [place]. Endorses pain and burning sensation while passing the micturition for two and of week. Complaining of decreased urine output and hematuria. He also endorses low blood pressure of 90 x 60 at home for the past two and half week. Endorses lightheadedness and shakes for the past one week. Complaining of dryness of lips and oral cavity. He has been on Keflex for the past three weeks for urinary tract infection and reporting foul-smelling urine. He reported no abdominal pain, abdominal distention, fever, dizziness. Patient was here in the ER for the lower back pain on 08/06/2024 and treated lumbosacral radiculopathy. Discussed code status with the patient the patient wants to be full code Course in the hospital: 73-year-old male admitted for acute urinary retention with UTI with sepsis, cystitis with bilateral severe hydroureteronephrosis with is with a stricture. White blood counts and serum creatinine elevated. Urinalysis positive for UTI. CT abdomen pelvis with IV contrast at [facility] bilateral hydronephrosis. Atrophic left kidney. Severe hydroureter. Severely distended bladder with diffusely thickened wall. No visible urinary tract calcifications. Large fluid collection involving the perineum at the base of the penis. No associated soft tissue gas or inflammatory change. Perineal abscess could cause appearance. Compression fracture versus diskitis involving the T10-11 vertebral bodies in the right done on 08/13/2024. Patient received IV normal saline, ceftriaxone, morphine. Patient is on NPO. We consulted Dr. Smiley and Dr. Escamilla. Blood and urine culture is negative. Lactic acid and procalcitonin is normal. ESR is elevated. Patient underwent urethral dilatation with the Santana's catheterization by Dr. Smiley and after that patient is symptomatically better and vitals are stable and WBC serum creatinine is improved. Dr. Smiley recommended for outpatient follow up. Dr. Escamilla is aware about the patient condition regarding the perineal fluid collection and appreciated the recommendations. GARRET secondary to vasomotor nephropathy with a UTI and sepsis is noted and serum creatinine is trended up to 1.96 and then trended down to 1.7. Physical therapy and TLSO brace is ordered for compression fracture involving T10-T11 vertebral bodies in the right side. Blood pressure is taken care with hydralazine p.r.n. medication. LDL is 69. ALP is 167. We discharge the patient on oral antibiotics and [place] recommended to follow up with Dr. odom in outpatient. Initially we thought of evaluating perineal collection versus abscess with MRI abdomen pelvis. Patient expresses his desire not to go for MRI abdomen because he is getting ringing sensation and agitated while in the MRI machine. We clearly explained him about his situation and patient is fully aware of his condition along with his in the presence of patient's surgical floor nurse. Patient does not want that MRI and expresses that he is aware of all the consequences including if he is not diagnosed untreated and we left the decision to patient and we held the orders for MRI abdomen and pelvis. As per Dr. Smiley perineum examination was unremarkable and normal and he we will continue to follow patient in outpatient setting in his office. Examination at the time of discharge: Vital Signs Date Time Temp Pulse Resp B/P (MAP) Pulse Ox O2 Delivery O2 Flow Rate FiO2 08/15/24 17:23 18 08/15/24 10:09 96 Room Air 08/15/24 10:00 97.7 106 132/74 (93) 08/14/24 00:05 0 21 EXAMINATION General: Alert, awake, oriented to time, place , person . Not in acute distress comfortably lying in the bed HEENT: PERRL, EOMI, no injection, Dry mucous membranes. Gastrointestinal :Soft, nontender, nondistended. Bowels sounds present. Positive CVA tenderness on the right side. Tender to palpation in the pelvic region Respiratory: Lungs clear, no respiratory distress. No crepitations and wheeze Cardiovascular: Regular rate and rhythm, no murmurs/gallops/rubs. Neurologic: Oriented x4. Psychiatric: Normal mood and affect. Skin: Normal color, warm and dry. No edema, no ecchymosis. Extremities: No clubbing no cyanosis, no edema. No point tenderness in the LS spine Discharge advice: FOLLOW UP WITH PRIMARY CARE PHYSICIAN WITH CBC, CMP FOLLOW UP WITH UROLOGIST OFFICE, DR. SMILEY IN 1-2 WEEKS WITH SANTANA'S CATHETER. CONTINUE TO FOLLOW UP WITH [facility](ALREADY HAD APPOINTMENT). READ ADVERSE EFFECTS OF THE MEDICATION CALL 911 OR VISIT ER IF EMERGENCY. New Medications: Hydrocodone Bit/Acetaminophen 5/325 MG ([place] 5/325 MG) 5 Mg/325 Mg Tablet Continued Medications: Celecoxib* (Celebrex*) 100 Mg Capsule Cephalexin*Monohydrate* (Keflex*) 500 Mg Capsule Lisinopril 20 Mg Tablet total dose is 30mg daily Rivaroxaban (Xarelto) 10 Mg Tablet Discontinued Medications: Hydrocodone Bit/Acetaminophen 5/325 MG ([place] 5/325 MG) 5 Mg/325 Mg Tablet *Problems/Diagnosis: (1) UTI (urinary tract infection) (2) Cystitis (3) Sepsis (4) Hydronephrosis, bilateral (5) Acute urinary retention (6) Urethral stricture (7) GARRET (acute kidney injury) (8) Prerenal acute renal failure (9) Dehydration (10) Vasomotor nephropathy (11) Perineal abscess (12) Compression fracture of T11 vertebra (13) Compression fracture of T10 vertebra (14) Hypertension (15) Hyperlipidemia (16) Severe protein-calorie malnutrition (17) Elevated alkaline phosphatase level (18) Urinary retention Status: Acute (19) Acute pyelonephritis Status: Acute (20) Urinary tract infection Status: Acute Total Time Spent on D/C: > 30 Minutes Date of Service: August 15, 2024 Billing Provider: JUNO HILL MD Common Visit Codes: 10532-YBU/OBS DISCH DAY >30min ANNABEL JULES, DESTINY August 15, 2024 17:42 JUNO HILL MD August 15, 2024 18:38
[2024-08-15] MEDS ORDERED: HYDR-3965 PO (17:43)
== END 2024-08-15 17:44 | disposition home or self-care (01) | DRG 871 ==
LOC: ER 13:58 → ED HOLD 17:05 → SUR 3N 23:00
PROVIDERS: ADMIT Internal Medicine; ATTEND Internal Medicine
PROC: 0T7D7ZZ Dilation of Urethra, Via Natural or Artificial Opening (ICD-10-PCS; principal; 2024-08-14)
PROC: 0T9B70Z Drainage of Bladder with Drainage Device, Via Natural or Artificial Opening (ICD-10-PCS; 2024-08-14)
DX: A41.9 Sepsis, unspecified organism (principal); E43 Unspecified severe protein-calorie malnutrition; N17.0 Acute kidney failure with tubular necrosis; N13.6 Pyonephrosis; L02.215 Cutaneous abscess of perineum; M48.54XA Collapsed vertebra, not elsewhere classified, thoracic region, initial encounter for fracture; N35.911 Unspecified urethral stricture, male, meatal; Z88.1 Allergy status to other antibiotic agents; Z79.899 Other long term (current) drug therapy; Z68.26 Body mass index [BMI] 26.0-26.9, adult; E86.0 Dehydration; R33.8 Other retention of urine
CPT/HCPCS: 36415; 72148; 76770; 80048; 80053; 80061; 81001; 83036; 83605; 83690; 84145; 85025; 85651; 86140; 87040; 87081; 87088; 96374; 96376; 97161; 97530; 99285; A4340; G0378; J0696; J1644; J2270; J7030